=== PATIENT | female | born 1960 ===

== ENCOUNTER 2018-02-26 06:13 | Day surgery (SDC) | payer OTHER ==
[~2018-02-26 06:13] MED LIST: ATENOLOL50 MG PO; SYNTHROID PO; ZANTAC300 MG PO
[2018-02-26] MEDS ORDERED: MACROBID 100 M100 MG PO (10:02)
[2018-02-26] MEDS ORDERED: TYLENOL-CODEINE1 TA1 PO (10:03)
== END 2018-02-26 12:05 | disposition home or self-care (01) ==
LOC: CIR.AMB 06:13
DX: N39.3 Stress incontinence (female) (male) (principal)
CPT/HCPCS: 57288; C1771